=== PATIENT | male | born 1995 | race Caucasian/White ===

== ENCOUNTER 2017-07-25 00:29 | Emergency (ER) | payer MEDICAID ==
[2017-07-25] MEDS ORDERED: Phenergan 25 MG INJ IM ONE (01:04)
[2017-07-25] MEDS ORDERED: DILAUDID 2 MG INJECTION IM ONE (01:04)
[2017-07-25 01:09] VITALS: BP 131/88; PULSE 88; O2SAT 100
[2017-07-25] MEDS ORDERED: Phenergan 25 MG INJ ONE (01:12)
[2017-07-25] MEDS ORDERED: DILAUDID 2 MG INJECTION ONE (01:13)
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
[2017-07-25] MEDS ORDERED: SILVADENE 50 GM TP ONE (01:34)
== END 2017-07-25 02:20 | disposition home or self-care (01) ==
LOC: ED 00:29
DX: T23.262A Burn of second degree of back of left hand, initial encounter (principal); X10.2XXA Contact with fats and cooking oils, initial encounter; Y93.G3 Activity, cooking and baking
CPT/HCPCS: 96372; 99283; 99284; J1170; J2550; A9270-GY

== ENCOUNTER 2022-02-18 00:18 | Emergency (ER) | payer OTHER ==
[2022-02-18] MEDS ORDERED: DUONEB 0.5-3 MG/3 ml Neb IH ONE ×2 (00:32→00:46)
[2022-02-18] MEDS ORDERED: KEFLEX 500 MG PO ONE (00:34)
[2022-02-18] MEDS ORDERED: DELTASONE 20 MG PO ONE (00:34)
[2022-02-18] MEDS ORDERED: DELTASONE 20 MG ONE (00:38)
[2022-02-18] MEDS ORDERED: KEFLEX 500 MG ONE (00:38)
--- NOTE | 2022-02-18 01:16 | ERPHSYRPT ---
- History of Present Illness Time Seen by Provider: 02/18/22 00:25 Patient Subjective Stated Complaint: pt states "I have been feeling sick for a couple days." Triage Nursing Assessment: pt ambulatory to bed by self, pt alert and oriented x3, pt c/o feeling sick the past couple days and feeling short of breath tonight, pt afebrile, pt stated he had one episode of diarrhea and one episode of vomiting today as well, pt sating 91-92% on room air, pt placed on 2 L NC and sating 95% Physician History: Patient is a 26-year-old white male who presents with a complaint of shortness of breath he is extremely phobic about needles. He was tested and found to have positive COVID on 01 20. He seemed to do well return to work last Saturday and became sick again on . He complains of cough and shortness of breath. Timing/Duration: day(s) (2) Activities at Onset: none Severity of Dyspnea-Max: moderate Severity of Dyspnea-Current: mild Possible Cause: occasional episodes Modifying Factors: Improves With: coughing Associated Symptoms: cough, wheezing, chills Allergies/Adverse Reactions: No Known Drug Allergies Allergy (Verified 02/18/22 00:19) Home Medications: Meloxicam 15 mg [Meloxicam 15 MG] 15 mg PO DAILY 02/18/22 [History] Hx Tetanus, Diphtheria Vaccination/Date Given: Yes Hx Influenza Vaccination/Date Given: No Immunizations Up to Date: Yes Travel Risk - International Travel Have you traveled outside of the country in past 3 weeks: No - Coronavirus Screening Are you exhibiting any of the following symptoms?: Yes Symptoms: Shortness of Breath Close contact with a COVID-19 positive Pt in past 14-21 Days: No - Vaccine Status Have you recieved a Covid-19 vaccination: Yes [employer]: [employer] - Vaccination Dates Date of 2cond Vaccination (if applicable): 2020 - Review of Systems Constitutional: No Fever, No Chills Eyes: No Symptoms Ears, Nose, & Throat: No Symptoms Respiratory: Cough, Dyspnea, Wheezing Cardiac: No Chest Pain, No Edema, No Syncope Abdominal/Gastrointestinal: No Abdominal Pain, No Nausea, No Vomiting, No Diarrhea Genitourinary Symptoms: No Dysuria Musculoskeletal: No Back Pain, No Neck Pain Skin: No Rash Neurological: No Dizziness, No Focal Weakness, No Sensory Changes Psychological: No Symptoms Endocrine: No Symptoms All Other Systems: Reviewed and Negative - Past Medical History Pertinent Past Medical History: No Neurological History: No Pertinent History ENT History: No Pertinent History Cardiac History: No Pertinent History Respiratory History: No Pertinent History Endocrine Medical History: No Pertinent History Musculoskeletal History: Arthritis GI Medical History: No Pertinent History History: No Pertinent History Psycho-Social History: No Pertinent History Male Reproductive Disorders: No Pertinent History - Past Surgical History Past Surgical History: No Neuro Surgical History: No Pertinent History Cardiac: No Pertinent History Respiratory: No Pertinent History Gastrointestinal: No Pertinent History Genitourinary: No Pertinent History Musculoskeletal: No Pertinent History Male Surgical History: No Pertinent History - Social History Smoking Status: Never smoker Exposure to second hand smoke: Yes Drug Use: none Patient Lives Alone: No - Nursing Vital Signs Nursing Vital Signs: Initial Vital Signs Temperature 99.1 F 02/18/22 00:20 Pulse Rate 109 H 02/18/22 00:20 Respiratory Rate 18 02/18/22 00:20 Blood Pressure 127/88 02/18/22 00:20 O2 Sat by Pulse Oximetry 94 L 02/18/22 00:20 Pain Scale Pain Intensity 4 - Physical Exam General Appearance: mild distress Eye Exam: PERRL/EOMI Neck Exam: normal inspection, supple Respiratory Exam: respiratory distress (Mild), rhonchi, wheezing Cardiovascular/Chest Exam: normal heart sounds, regular rate/rhythm Abdominal/Gastrointestinal Exam: soft, No tenderness, No distention, No mass Peripheral Pulses Exam: carotid (R): 2+, carotid (L): 2+ Neurologic Exam: alert, oriented x 3, cooperative, medical office secretary II-XII nml as tested, sensation nml, No motor deficits Skin Exam: normal color, warm, No dry SpO2 Interpretation: O2 applied SpO2: 92 O2 Delivery: Room Air - Course Nursing assessment & vital signs reviewed: Yes - Radiology Exams Chest X-ray Interpretation: Interpreted by me, Negative Ordered Tests: Active Orders 24 hr Category Date Time Status CHEST 1 VIEW (PORTABLE) Stat Exams 02/18/22 00:33 Taken Respiratory Therapy Assessment DAILY RT 02/18/22 00:47 Completed Medication Summary Generic Name Dose Route Start Last Admin Trade Name Freq PRN Reason Stop Dose Admin Albuterol Sulfate 2 gm 02/18/22 01:23 Albuterol Sulfate 8 Gm Mdi Hfa 03/20/22 01:29 Q4H PRN SHORTNESS OF BREATH/WHEEZING Discontinued Medications Generic Name Dose Route Start Last Admin Trade Name Freq PRN Reason Stop Dose Admin Albuterol/Ipratropium 3 ml 02/18/22 00:32 02/18/22 00:49 Ipratropium/Albuterol Sulfate 3 Ml Ampul.Neb IH 02/18/22 00:33 3 ml STAT ONE Administration Albuterol/Ipratropium Confirm 02/18/22 00:46 Ipratropium/Albuterol Sulfate 3 Ml Ampul.Neb Administered 02/18/22 00:47 Dose 3 ml IH .STK-MED ONE Cephalexin HCl 500 mg 02/18/22 00:34 02/18/22 00:44 Cephalexin Mh500 Mg Capsule PO 02/18/22 00:35 500 mg STAT ONE Administration Cephalexin HCl Confirm 02/18/22 00:38 Cephalexin Mh500 Mg Capsule Administered 02/18/22 00:39 Dose 500 mg .ROUTE .STK-MED ONE Prednisone 60 mg 02/18/22 00:34 02/18/22 00:43 Prednisone 20 Mg Tablet PO 02/18/22 00:35 60 mg STAT ONE Administration Prednisone Confirm 02/18/22 00:38 Prednisone 20 Mg Tablet Administered 02/18/22 00:39 Dose 60 mg .ROUTE .STK-MED ONE - Progress Progress: improved Air Movement: good Blood Culture(s) Obtained: No Antibiotics given: Yes - Departure Departure Disposition: Home Clinical Impression: Bronchitis with bronchospasm Condition: Stable Critical Care Time: No Referrals: SANDRA MARX MD [Primary Care Provider] - Follow up/PCP as directed Instructions: Asthma, Adult (DC) Prescriptions: Prednisone 10 mg [Deltasone 10 mg] 20 mg PO BID 3 Days #12 tablet Cephalexin Mh 500 mg [Keflex 500 mg] 500 mg PO QID #40 cap
[2022-02-18] MEDS ORDERED: Ventolin Hfa MDI IH PRN (01:23)
[2022-02-18 01:34] VITALS: BP 128/80; PULSE 100; O2SAT 95
[2022-02-18] MEDS ORDERED: Ventolin Hfa MDI IH ONE (01:35)
--- NOTE | 2022-02-18 07:54 | XRAY ---
Indication: Short of breath. Comparison: October 06, 2021 Portable chest again demonstrates normal heart, lungs, and bony thorax with incidental tiny left base calcified granuloma.
== END 2022-02-18 01:51 | disposition home or self-care (01) ==
LOC: ED 00:18
DX: J20.9 Acute bronchitis, unspecified (principal); R06.02 Shortness of breath; R05.9 Cough, unspecified; Z79.52 Long term (current) use of systemic steroids; Z79.899 Other long term (current) drug therapy; Z86.16 Personal history of COVID-19
CPT/HCPCS: 71045; 94640; 99283; A9270-GY